=== PATIENT | female | born 1960 | race Caucasian/White ===

== ENCOUNTER → 2018-02-10 | Emergency (ER) | payer MEDICARE, BC | END | disposition home or self-care (01) | LOC: FTE 22:55 | DX: R21 Rash and other nonspecific skin eruption (principal); I10 Essential (primary) hypertension; E11.9 Type 2 diabetes mellitus without complications; Z79.4 Long term (current) use of insulin | CPT/HCPCS: 99283 ==

== ENCOUNTER 2018-03-30 17:32 | Emergency (ER) | payer MEDICARE, BC ==
[2018-03-30] MEDS: LORAZEPAM 0.5 MG TAB PO (18:26)
== END 2018-03-30 19:44 | disposition home or self-care (01) ==
LOC: FTE 19:44
DX: M54.5 Low back pain (principal); E11.9 Type 2 diabetes mellitus without complications; I10 Essential (primary) hypertension; Z79.4 Long term (current) use of insulin
CPT/HCPCS: 72100; 99283-25

== ENCOUNTER 2018-11-03 22:11 | Emergency (ER) | payer MEDICARE, BC ==
[2018-11-03] MEDS: LIDOCAINE 2% VISC 15 ML CUP PO (22:55)
[2018-11-03] MEDS: KETOROLAC 15 MG INJ IM (22:56)
[2018-11-03] MEDS: DEXAMETHASONE 10 MG/ML 1 ML INJ IM (22:56)
== END 2018-11-04 00:28 | disposition home or self-care (01) ==
LOC: FTE 11-04 00:28
DX: J02.9 Acute pharyngitis, unspecified (principal); I10 Essential (primary) hypertension; E11.9 Type 2 diabetes mellitus without complications; J06.9 Acute upper respiratory infection, unspecified; Z79.4 Long term (current) use of insulin
CPT/HCPCS: 87880; 96372; 99284-25